=== PATIENT | male | born 1980 | race Caucasian/White ===

== ENCOUNTER 2018-06-04 12:02 | Emergency (ER) | payer SELFPAY ==
[2018-06-04 12:03] VITALS: BP 134/78; PULSE 58; RESP 17; TEMP 37; O2SAT 100; BMI 21.1
--- NOTE | 2018-06-04 12:43 | ED.VISSUMM ---
- ER Visit Summary Date of Service: 06/04/18 Chief Complaint: Dental pain History of Present Illness: The patient is a 37 M with no primary care physician. Reports that he has pain in his left mandibular first molar that began 2 days ago. It is aching, throbbing pain 8 out of 10 hours and 6 of 10 currently. Is worsened by eating and relieved by ibuprofen minimally. His review of systems is negative. Physical Examination: Vitals: Stable. Afebrile. Mouth: No trismus. No edema of the floor of the mouth. Pain with percussion of left mandibular first molar. Widespread dental decay. No focal abscess. Moderate swelling of the left mandibular area. This does not extend onto the neck of the submandibular area. General: A&O x 3. NAD. Cardiovascular exam: Regular rate and rhythm, no murmur, rub or gallop. Respiratory exam: Clear to auscultation bilaterally. No wheezes or stridor. Abdominal exam: Soft, nontender, nondistended, normal bowel sounds. No peritoneal signs. Extremity: No clubbing, cyanosis, or edema. Emergency Department Course and Treatment: Patient did not want anything for pain. He was given penicillin p.o. He is resting comfortably. Treatment Plan: Patient will be discharged on penicillin. Instructed to follow-up the dentist as soon as possible. Return to the emergency department for any worsening symptoms. Disposition: This note was generated with jaja.tv software. It may contain incorrect words, spelling, and punctuation that were not noted in review of the chart prior to signing. Impression: 1. Dental abscess. This note was generated with [employer]book[employer] Textbook Time dictation software. It may contain incorrect words, spelling, and punctuation that were not noted in review of the chart prior to signing ED Disposition - Plan for ED Patient: Disposition: Home or Assisted Living Instructions: Dental Abscess Prescriptions: Penicillin V Potassium 500 mg PO 4X/DAY #40 tablet Referrals: Dentist,Your [STAFF PHYSICIAN] - As soon as possible
[2018-06-04] MEDS: Penicillin Vk 250 MG Tablet 500 MG PO (12:49)
== END 2018-06-04 12:53 | disposition home or self-care (01) ==
LOC: ED 12:50
PROVIDERS: Emergency Provider Emergency Medicine
DX: L02.91 Cutaneous abscess, unspecified (principal); Z72.0 Tobacco use
CPT/HCPCS: 99283

== ENCOUNTER 2018-06-24 17:37 | Emergency (ER) | payer SELFPAY ==
[2018-06-24 17:38] VITALS: BP 133/78; PULSE 74; RESP 17; TEMP 36.7; O2SAT 99; BMI 20.9
--- NOTE | 2018-06-24 19:43 | ED.RN ---
PATIENT LWBS AT 1939
== END 2018-06-24 19:39 | disposition left against medical advice (07) ==
LOC: ED 19:49
PROVIDERS: Emergency Provider Emergency Medicine
DX: R69 Illness, unspecified (principal); Z53.21 Procedure and treatment not carried out due to patient leaving prior to being seen by health care provider

== ENCOUNTER 2020-07-06 10:59 | Emergency (ER) | payer OTHER, SELFPAY ==
[2020-07-06 11:00] VITALS: BP 130/79; PULSE 72; RESP 16; TEMP 35.8; O2SAT 100; BMI 21.6
--- NOTE | 2020-07-06 12:01 | ED.VIS.DENTA ---
HPI History of Present Illness Chief Complaint: Dental Informant: patient Narrative Narrative: Patient is 39-year-old male presenting with left-sided dental pain and jaw swelling. He states that been present for the past 3 days. Is been taking ibuprofen with no relief. Last dose was last night. He saw a dentist about 6 months ago when he had a similar episode. At that time he was on antibiotics, he thinks it was penicillin. He never followed up with a dentist and did not have his dental issues addressed. Patient has associated fever. Eyes any difficulty swallowing. He denies any change in speech. Does not report any new trauma. No other complaints at this time. PFSH PFSH no medical history Home Medications ibuprofen 600 mg PO Q6H PRN PRN #20 tab 07/06/20 [Rx Last Taken Unknown] penicillin V potassium 500 mg PO 4X/DAY #40 tab 07/06/20 [Rx Last Taken Unknown] Allergy/AdvReac Type Severity Reaction Status Date / Time No Known Allergies Allergy Verified 07/06/20 11:03 Social History Smoking Status: Heavy Smoker (>10/day) ROS ROS ED Constitutional Constitutional ED: Denies chills or fever(s) Eyes Eyes: Denies blurry vision or change in vision ENT ENT ED: Reports ear pain left and other Details: Left lower dental pain ; Denies rhinorrhea or sore throat Cardiovascular Cardiovascular: Denies chest pain Respiratory/Chest Respiratory/Chest: Denies dyspnea Gastrointestinal Gastrointestinal: Denies abdominal pain, nausea or vomiting Musculoskeletal Musculoskeletal: Denies arthralgias or myalgias Integumentary Denies rash Neurologic Neurologic: Denies headache(s) EXAM Physical Exam Const Vital Signs: 07/06/20 11:00 Temperature 96.4 F L Temperature Source Temporal Pulse Rate 72 Respiratory Rate 16 Blood Pressure 130/79 H Blood Pressure Mean 96 Pulse Ox 100 Oxygen Delivery Method Room Air Positive well nourished and well developed General Appearance ED: well developed HEENT Reports TM's clear HEENT Narrative: Widespread dental decay and multiple missing teeth. No acute appearing broken tooth. Diffuse tenderness of the left lower molars. No apical abscess appreciated. Sublingual mucosa is soft. Negative for trauma Face and Sinus: sinuses nontender Tympanic Membrane ED: Yes TM's clear Mouth ED: Yes tongue normal and No mouth trauma Mouth: tongue normal and No mouth trauma Throat: posterior oropharynx normal Eyes PERRL and EOMs intact bilaterally Neck no lymphadenopathy and supple General: normal visual inspection Chest Wall inspection of chest normal Resp normal respiratory effort Cardio regular rate and regular rhythm Extremity normal to inspection Neuro oriented x3 and CN's II-XII intact bilaterally Sensorium / Orientation: alert Psych mental status grossly normal Skin no rashes or lesions noted MDM MDM MDM Narrative Medical decision making narrative: Patient will have her dental pain. Initially he is requesting a dental block. There was a delay in getting the Marcaine and by the time I came into the room to do the block he states he is actually feeling better and does not want it anymore. Patient be discharged home with prescription for Pen-Vee K. He is instructed alternate Tylenol and ibuprofen as well for pain. He is given dental referral clinic sheets. Patient does not have any airway compromise. I am not concerned for Ludwigs angina or any more serious process at this time. I think he stable for outpatient discharge. Patient counseled on signs and symptoms require return to the emergency room. He verbalizes agreement understand this plan. He is discharged home in stable condition. Treatment and Re-Evaluation Comments:: Motrin, Tylenol, Pen-V K?improvement of symptoms and pain Discharge Plan Triage Chief Complaint: Dental ED Provider: Mana Medina Dx/Rx/DC Orders Clinical Impression: Dentalgia Instructions: ED Dental Pain Prescriptions: New ibuprofen 600 mg tablet 600 mg PO Q6H PRN PRN (Reason: fever or pain) Qty: 20 RF: 0 penicillin V potassium 500 mg tablet 500 mg PO 4X/DAY Qty: 40 RF: 0 Primary Care Provider: Care Physician,No Primary Referrals: Becky Woods [NON-STAFF] - Care Physician,No Primary [Primary Care Provider] - Activity Restrictions/Additional Instructions: Alternate Tylenol and ibuprofen for pain. Take the entire course of antibiotics. Please make sure you follow-up with a dentist in the next 2 weeks. Disposition Disposition: Home, self care
[2020-07-06] MEDS: Penicillin Vk 250 MG Tablet 500 MG PO (12:15)
[2020-07-06] MEDS: Ibuprofen 600 MG Tablet PO (12:15)
[2020-07-06] MEDS: Acetaminophen 500 MG Tablet 1000 MG PO (12:15)
== END 2020-07-06 13:45 | disposition home or self-care (01) ==
PROVIDERS: Emergency Provider Emergency Medicine
DX: K02.9 Dental caries, unspecified (principal); F17.200 Nicotine dependence, unspecified, uncomplicated
CPT/HCPCS: 99283

== ENCOUNTER 2020-08-08 10:11 | Emergency (ER) | payer OTHER, SELFPAY ==
[2020-08-08 10:13] VITALS: BP 134/85; PULSE 85; RESP 16; TEMP 36.9; O2SAT 99; BMI 19.9
--- NOTE | 2020-08-08 10:37 | RAD_ITS ---
STUDY: X-RAY CHEST REASON FOR EXAM: Male, 40 years old. 3-4 day history of cough. TECHNIQUE: Single AP portable view of the chest. COMPARISON: None. FINDINGS: Hyperinflation. The lungs are clear. There is no demonstrated pleural abnormality. Normal size heart. Normal mediastinum and guillermo. Normal visualized pulmonary arteries. Normal visualized aortic arch and descending thoracic aorta. Normal visualized thoracic spine. Normal visualized ribs, clavicles, and shoulders. There is no demonstrated abnormality of the visualized soft tissue structures of the upper abdomen. RAD/Chest 1 View (Portable) IMPRESSION: Hyperinflation. The lungs are clear. Electronically Signed: Los Wray MD at 11:38 EDT , Service support ,
[2020-08-08 10:49] VITALS: O2SAT 100
--- NOTE | 2020-08-08 12:12 | EX.ED.VIS.UR ---
HPI HPI - URI History of Present Illness Chief Complaint: Cough Informant: patient Onset/Context/Timing Onset: Days (3) Context: Gradual Onset Timing: Continuous Quality: Pressure Location: Chest, throat Worsened by: - (Nothing) Relieved by: - (Nothing) Associated Symptoms Associated Symptoms: Positive for Nasal Congestion, Shortness of Breath, Chest Pain and Productive Cough (Brown and yellow sputum); Negative for Headache, Sinus Pressure, Myalgias, Nausea, Vomiting and Diarrhea Narrative Narrative: This patient presents with cough and congestion for the past 3 days. Patient states he feels like congestion or pressure in his chest and throat. Patient states it is gradually getting worse. Patient admits to some nasal congestion as well. Patient states she is coughing up some brown-yellow sputum. Patient admits to some shortness of breath. Patient denies any nausea or vomiting. Patient admits to subjective chills but denies any fevers. ROS ROS ED Constitutional Constitutional ED: Reports chills and subjective; Denies fever(s) Eyes Eyes: Denies blurry vision or change in vision ENT ENT ED: Reports rhinorrhea; Denies sore throat Cardiovascular Cardiovascular: Reports chest pain; Denies palpitations Respiratory/Chest Respiratory/Chest: Reports cough and dyspnea Gastrointestinal Gastrointestinal: Denies nausea or vomiting Genitourinary Genitourinary ED: Denies dysuria or hematuria Musculoskeletal Musculoskeletal: Reports back pain; Denies neck pain Integumentary Denies abscess or rash Neurologic Neurologic: Denies headache(s) or weakness Allergic/Immunologic Allergic/Immunologic ED: Denies mouth swelling or urticaria PFSH PFSH no medical history Home Medications NK 08/08/20 [History Last Taken Unknown] Allergy/AdvReac Type Severity Reaction Status Date / Time No Known Allergies Allergy Verified 08/08/20 10:11 no surgical history Social History Smoking Status: Heavy Smoker (>10/day) EXAM Physical Exam Const Vital Signs: 08/08/20 10:13 08/08/20 10:49 Temperature 98.4 F Temperature Source Temporal Pulse Rate 85 Respiratory Rate 16 Respiratory Effort Short of Breath Respiratory Depth Normal Respiratory Pattern Normal Blood Pressure 134/85 H Blood Pressure Mean 101 Pulse Ox 99 Oxygen Delivery Method Room Air Room Air Positive well nourished and well developed General Appearance ED: well developed HEENT normocephalic and atraumatic Eyes PERRL and EOMs intact bilaterally Neck supple and no JVD Chest Wall palpation of chest normal Resp normal respiratory effort and clear to auscultation bilaterally Effort and Inspection: Negative for respiratory distress Cardio regular rate, regular rhythm and no murmurs Rate: regular rate Rhythm: regular rhythm GI normal to inspection, nondistended, normoactive bowel sounds, soft to palpation, non-tender and non-distended Auscultation: normoactive bowel sounds Palpation: soft Extremity normal to inspection General Extremety ED: Negative for edema or tenderness General Extremity: Negative for edema Neuro oriented x3, CN's II-XII intact bilaterally and no sensory deficits noted Sensorium / Orientation: awake and alert Motor Exam: strength 5/5 throughout Psych mental status grossly normal MDM MDM MDM Narrative Medical decision making narrative: COVID-19 rapid antigen was obtained and was negative. Portable 1 view chest x-ray was obtained. On my interpretation, lung henriquez are hyperinflated but clear. There is normal cardiac silhouette. Bony thorax is normal. There is no acute process noted. Radiologist also interpreted the x-ray and agrees. Patient is feeling better on reevaluation wants to go home. Patient was advised of his findings. Patient was instructed to follow-up with his primary care physician in 5 to 7 days. Patient understood and was agreeable with the plan. All questions were answered. Radiography Diagnostic Testing: Radiology Impression Chest X-Ray 08/08/20 10:37 IMPRESSION: Hyperinflation. The lungs are clear. Electronically Signed: Los Wray MD at 11:38 EDT , Service support , Discharge Plan Triage Chief Complaint: Cough ED Provider: Justen Prabhakar Dx/Rx/DC Orders Clinical Impression: Viral URI Instructions: ED URI, Viral, No Abx (Adult) Prescriptions: No Action NK RF: 0 Primary Care Provider: Care Physician,No Primary Referrals: Care Physician,No Primary [Primary Care Provider] - 1-2 Weeks Disposition Disposition: Home, self care
== END 2020-08-08 12:22 | disposition home or self-care (01) ==
PROVIDERS: Emergency Provider Emergency Medicine
DX: J06.9 Acute upper respiratory infection, unspecified (principal); F17.200 Nicotine dependence, unspecified, uncomplicated
CPT/HCPCS: 71045; 87426; 99282

== ENCOUNTER 2023-05-03 11:09 | Emergency (ER) | payer BC, SELFPAY ==
[2023-05-03 11:09] VITALS: BP 138/84; PULSE 68; RESP 14; TEMP 36.3; O2SAT 100; BMI 20.7
--- NOTE | 2023-05-03 11:17 | EDS_ITS ---
HPI <HERNESTO Matthews - Last Filed: 05/03/23 11:25> History of Present Illness Chief Complaint: Dental Narrative Narrative: 42-year-old male has had 3 days of left lower dental pain and swelling. He states he had an abscess in this area before. He cannot tell exactly which molars coming from. No fever, chills, or difficulty swallowing or breathing. He states he just got insurance and plans to follow-up with a dentist. PFSH <HERNESTO Matthews - Last Filed: 05/03/23 11:25> PFS Medical History no medical history Home Medications penicillin V potassium 500 mg tablet 500 mg PO 4X/DAY #40 tabs 05/03/23 [Rx Last Taken Unknown] Allergy/AdvReac Type Severity Reaction Status Date / Time No Known Allergies Allergy Verified 05/03/23 11:10 Social History Smoking Status: Heavy Smoker (>10/day) ROS <HERNESTO Matthews - Last Filed: 05/03/23 11:25> ROS ED ROS Narrative Constitutional: Negative for fever, chills, malaise. GI: Negative for nausea, vomiting. Neuro: Negative for headache. EXAM <HERNESTO Matthews - Last Filed: 05/03/23 11:25> Physical Exam Narrative Exam Narrative: CONST: Patient sitting in no acute distress. EYES: Normal inspection. ENT: Widespread dental decay and tenderness of left lower molars. Mild swelling of the left mandible. No periapical abscess, sublingual space is soft. No trismus, drooling or stridor. Normal posterior oropharynx. NECK: Normal inspection. Trachea midline. RESP: No respiratory distress, CTAB. CVS: Regular rate and rhythm, no murmur, no gallop. SKIN: Color normal, no rash, warm, dry, intact. NEURO: Oriented x4. PSYCH: Normal affect. Const Vital Signs: 05/03/23 11:09 Temperature 97.3 F L Temperature Source Temporal Pulse Rate 68 Respiratory Rate 14 Blood Pressure 138/84 H Blood Pressure Mean 102 Pulse Ox 100 Oxygen Delivery Method Room Air <Dr. Messi Machado DO - Last Filed: 05/03/23 20:25> Physical Exam Narrative Exam Narrative: CONST: Patient sitting in no acute distress. EYES: Normal inspection. ENT: Widespread dental decay and tenderness of left lower molars. Mild swelling of the left mandible. No periapical abscess, sublingual space is soft. No trismus, drooling or stridor. Normal posterior oropharynx. No trismus, no drooling, no stridor, posterior pharynx clear, uvula midline, no neck tenderness to palpation, full neck range of motion NECK: Normal inspection. Trachea midline. RESP: No respiratory distress, CTAB. CVS: Regular rate and rhythm, no murmur, no gallop. SKIN: Color normal, no rash, warm, dry, intact. NEURO: Oriented x4. PSYCH: Normal affect. Const Vital Signs: 05/03/23 11:09 Temperature 97.3 F L Temperature Source Temporal Pulse Rate 68 Respiratory Rate 14 Blood Pressure 138/84 H Blood Pressure Mean 102 Pulse Ox 100 Oxygen Delivery Method Room Air MDM <HERNESTO Matthews - Last Filed: 05/03/23 11:25> [facility] Narrative Medical decision making narrative: Patient has dental decay and 3 days of pain and mild swelling. Tender over left lower molars. No evidence of drainable periapical abscess or Xander angina. He was started on penicillin VK and advised to alternate Tylenol/Motrin and follow- up with a dentist. He was discharged in stable condition. <Dr. Messi Machado DO - Last Filed: 05/03/23 20:25> [facility] Narrative Medical decision making narrative: Patient has dental decay and 3 days of pain and mild swelling. Tender over left lower molars. No evidence of drainable periapical abscess or Xander angina. He was started on penicillin VK and advised to alternate Tylenol/Motrin and follow- up with a dentist. He was discharged in stable condition. ED attending note: I evaluated the patient in conjunction with the STEFANIE. I agree with his/her statements and above findings. I have personally performed a face to face assessment of the patient and have reviewed the STEFANIE Note. I performed a substantive portion of the visit including all aspects of the following. I personally saw the patient performed chart review, physical exam, reviewed labs, imaging (if obtained), and formulated a treatment and management plan. This note was generated with [email or web address] software. It may contain incorrect words, spelling, and punctuation that were not noted in review of the chart prior to signing. Discharge Plan Triage Chief Complaint: Dental ED Midlevel Provider: Haley Ramirez ED Provider: Messi Machado Dx/Rx/DC Orders Clinical Impression: Dental abscess Instructions: Dental Abscess Prescriptions: New penicillin V potassium 500 mg tablet 500 mg PO 4X/DAY Qty: 40 0RF Primary Care Provider: Care Physician,No Primary Referrals: Care Physician,No Primary [Primary Care Provider] - Activity Restrictions/Additional Instructions: Alternate Tylenol and Motrin every 3 hours as needed for pain and follow-up with a dentist Disposition Disposition: Home, Self Care Discharge Date/Time: 05/03/23 11:58
[2023-05-03] MEDS: Penicillin Vk 250 MG Tablet 500 MG PO (11:30)
--- OUTSIDE RECORDS SUMMARY | 2023-05-03 11:44 | XMS RPT_ITS | CCD ---
Author Name Unknown Address [address] [facility] [address] [place] [id number] Organization [facility] Care Team Providers Care Material Inspector Name Role Phone Unavailable Primary Care Provider Unavailabl e Medications Current Medications Medication Drug Class(es) Dates Sig (Normalized) Sig (Original) amoxicillin 875 mg oral tablet (2 sources) Penicillin-class Antibacterial Start: 12-18-2022 End: 12-23-2022 take 1 tablet by mouth twice daily amoxicillin (AMOXIL) 875 mg tablet Indications: Dental infection Take 1 tablet by mouth two times a day for 5 days. 10 tablet 0 12/18/2022 12/23/2022 Active Problems Problem Classification Problem Date Documented Da te Episodic/Chronic Disorders of teeth and jaw (2 sources) Infection of tooth; Translations: [Periapical abscess without sinus] Episodic Results Test Name Value Interpretation Reference Range Facil ity Vital Signs Date Time Vital Sign Value Performing Clinician Faci lity 12-18-2022 19:08-0400 Body temperature 98.8 [degF] Davin Livingston MD Work Phone: [facility] 12-18-2022 19:08-0400 Body weight 52.53 kg Davin Livingston MD Work Phone: [facility] 12-18-2022 19:08-0400 Diastolic blood pressure 83 mm[Hg] Davin Livingston MD Work Phone: [facility] 12-18-2022 19:08-0400 Heart rate 91 /min Davin Livingston MD Work Phone: [facility] 12-18-2022 19:08-0400 Respiratory rate 18 /min Davin Livingston MD Work Phone: [facility] 12-18-2022 19:08-0400 SaO2% (BldA) [Mass fraction] 99 % Davin Livingston MD Work Phone: [facility] 12-18-2022 19:08-0400 Systolic blood pressure 129 mm[Hg] Davin Livingston MD Work Phone: [facility] 06-03-2022 18:26-0400 Body temperature 98.91 [degF] Pamela Athy PA-C Work Phone: [facility] 06-03-2022 18:26-0400 Body weight 55.52 kg Pamela Athy PA-C Work Phone: [facility] 06-03-2022 18:26-0400 Diastolic blood pressure 78 mm[Hg] Pamela Athy PA-C Work Phone: [facility] 06-03-2022 18:26-0400 Heart rate 73 /min Pamela Athy PA-C Work Phone: [facility] 06-03-2022 18:26-0400 Respiratory rate 16 /min Pamela Athy PA-C Work Phone: [facility] 06-03-2022 18:26-0400 SaO2% (BldA) [Mass fraction] 97 % Pamela Athy PA-C Work Phone: [facility] 06-03-2022 18:26-0400 Systolic blood pressure 122 mm[Hg] Pamela Athy PA-C Work Phone: [facility] Encounters Encounter Date Encounter Type Care Provider Facility Start: 02-27-2023 End: 02-27-2023 ambulatory Facility:[facility] Start: 12-18-2022 End: 12-18-2022 ambulatory Facility:[facility] Start: 12-18-2022 End: 12-18-2022 Patient encounter procedure Davin Livingston MD Work Phone: [facility] Plan of Treatment Date Care Activity Detail Author Start: 10-31-2022 Influenza vaccination [facility] Start: 03-02-2022 DEPRESSION ASSESSMENT DEPRESSION ASS ESSMENT [facility] Start: 2017 Lipid 1996 panel - S daja or Plasma Lipid Screening [facility] Start: 2017 LIPID SCREEN LIPID SCREEN [facility] Start: 2001 Urine microalbumin profile [facility] Start: 2000 HEPATITIS C SCREENING HEPATITIS C SC REENING [facility] Start: 2000 HIV SCREENING HIV SCREENING [facility] Start: 1988 PNEUMOCOCCAL (1 - PCV) PNEUMOCOCCAL (1 - PCV) [facility] Start: 1988 Pneumococcal vaccination Pneum ococcal Vaccine (1 - PCV) [facility] Start: 01-10-1983 COVID-19 VACCINE (#1) COVID-19 VACCI NE (#1) [facility] Start: 1982 HEPATITIS B (1 of 3 - 3-dose series) HEPATITIS B (1 of 3 - 3-dose series) [facility] Start: 1982 Hepatitis B Vaccine (1 of 3 - 3-dose series) Hepatitis B Vaccine (1 of 3 - 3-dose series) [facility] Immunizations Immunization Date Immunization Notes Care Provider Luisana bowen 01-15-2008 influenza virus vaccine, unspecified formulation Pamela Banks PA-C Work Phone: [facility] Work Phone: Payers Date Payer Category Payer Unknown PENDING 2022 Unknown [id number] 2022 Unknown [id number] 2022 Unknown [id number] Social History Date Type Detail Facility Start: 06-03-2022 Tobacco smoking stat us AKIS Smokes tobacco daily [facility] History of tobacco use Cigarette Smoker C [facility] Start: 06-03-2022 End: 12-18-2022 Cigarettes smoked current (pack per day) - Reported 1 [facility] Start: 06-03-2022 Tobacco use and exposure Smoke less tobacco non-user [facility] Start: 06-03-2022 End: 12-18-2022 Alcohol intake Current non-drinker of alcohol (finding) [facility] Start: 1980 Sex Assigned At Not on file C [facility] Start: 12-18-2022 Tobacco use panel [facility] Progress note 02-27-2023 Note Date & Type Note Facility 02-27-2023 Note HNO ID: [id number] Author: Alysha Abdi PA Service: ? Author Type: Physician Satellite Installation Technician Type: Progress Notes Filed: 02/27/2023 5:30 PM Note Text: This note was created using Nemediariter. Subjective Butch Dejesus is a 42 year old male. HPI 42-year-old male presents for left index finger swelling, redness. Patient states that started about 2 days ago. He has history of paronychia in the past. 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 Has not been on any antibiotics recently. No drainage from the area. No fevers. No pain with movement of the finger. No injury. PAST MEDICAL HISTORY Diagnosis Date NEGATIVE MEDICAL HISTORY No past surgical history on file. ALLERGIES Patient has no known allergies. MEDICATIONS amoxicillin-clavulanate potassium (AUGMENTIN) 875-125 mg per tablet Take 1 tablet by mouth two times a day for 7 days. No family history on file. Social History Tobacco Use Smoking status: Every Day Packs/day: 1.00 Years: 11.00 Additional pack years: 0.00 Total pack years: 11.00 Types: Cigarettes Smokeless tobacco: Never Substance Use Topics Alcohol use: No Drug use: No Review of Systems Constitutional: Negative for chills and fever. HENT: Negative for congestion and sore throat. Respiratory: Negative for cough and shortness of breath. Gastrointestinal: Negative for diarrhea and vomiting. Skin: Positive for color change. Objective BP 128/78 Pulse 87 Temp 36.9 ?C (98.5 ?F) Resp 18 Wt 56.7 kg (125 lb) SpO2 99% Physical Exam Vitals and nursing note reviewed. Constitutional: General: He is not in acute distress. Appearance: Normal appearance. He is not toxic-appearing. Musculoskeletal: Left hand: Swelling present. Hands: Comments: Swelling and erythema noted around the base of the left index finger nail. No tenderness over the flexor surface. No erythema or swelling over the flexor surface. Normal flexion extension of the digit. No drainage. Skin: General: Skin is warm and dry. Neurological: Mental Status: He is alert. Assessment and Plan ASSESSMENT/PLAN: 1. Paronychia of finger of left hand - ICD9: 681.02, ICD10: L03.012 - Attempted to lift the skin of the cuticle and IANDD with a needle, but no drainage was expressed. Antibiotic ointment and bandage applied. - Begin treatment with Augmentin x 7 days. 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 Pt acknowledged understanding of concepts and follow up plan. Specific signs and symptoms that would indicate the need for higher level of care were discussed in detail warranting prompt ER evaluation. HERNESTO [facility] Progress note 12-18-2022 Note Date & Type Note Facility 12-18-2022 Note HNO ID: [id number] Author: Davin Livingston MD Service: ? Author Type: Physician Type: Progress Notes Filed: 12/18/2022 7:22 PM Note Text: Patient presents with: Dental Problem: Left side bottom x 1 week HPI: Dental pain: Duration: 1 week Location: left lower molar Character: aching and throbbing Aggravating: biting, cold air or liquid Relieving: Pain relievers: midol Associated: cavity Pertinent negatives: Denies fever, drainage, new injury MEDICATIONS: No prescriptions on file. ALLERGIES: ALLERGIES No Known Allergies VITALS: BP 129/83 Pulse 91 Temp 37.1 ?C (98.8 ?F) Resp 18 Wt 52.5 kg (115 lb 12.8 oz) SpO2 99% PE: Gen: Mildly uncomfortable appearing Eyes: PERRL, EOMI, sclera lightly injected Ears: Canals clear. TMs without erythema, bulge, or effusion Sinuses: non-tender frontal, non-tender maxillary Mouth/throat: MMM, no pharyngeal erythema, left lower 1st molar has cavities and identified as painful tooth. Neck: Supple, no thyromegaly, nontender, no lymphadenopathy Heart: regular rate and rhythm, no murmurs Lungs: clear to auscultation ASSESSMENT/PLAN: 1. Dental infection - ICD9: 522.4, ICD10: K04.7 - AMOXICILLIN 875 MG TABLET As needed OTC analgesia. Recommended follow up with dentist for cavity repair. Davin Livingston MD [facility] History of Present illness Narrative 12-18-2022 Davin Livingston MD - 12/18/2022 7:10 PM EDT Note Date & Type Note Facility 12-18-2022 History of Presen t illness Narrative Patient presents with: Dental Problem: Left side bottom x 1 week HPI: Dental pain: Duration: 1 week Location: left lower molar Character: aching and throbbing Aggravating: biting, cold air or liquid Relieving: Pain relievers: midol Associated: cavity Pertinent negatives: Denies fever, drainage, new injury MEDICATIONS: No prescriptions on file. ALLERGIES: ALLERGIES No Known Allergies VITALS: BP 129/83 Pulse 91 Temp 37.1 C (98.8 F) Resp 18 Wt 52.5 kg (115 lb 12.8 oz) SpO2 99% PE: Gen: Mildly uncomfortable appearing Eyes: PERRL, EOMI, sclera lightly injected Ears: Canals clear. TMs without erythema, bulge, or effusion Sinuses: non-tender frontal, non-tender maxillary Mouth/throat: MMM, no pharyngeal erythema, left lower 1st molar has cavities and identified as painful tooth. Neck: Supple, no thyromegaly, nontender, no lymphadenopathy Heart: regular rate and rhythm, no murmurs Lungs: clear to auscultation ASSESSMENT/PLAN: 1. Dental infection - ICD9: 522.4, ICD10: K04.7 - AMOXICILLIN 875 MG TABLET As needed OTC analgesia. Recommended follow up with dentist for cavity repair. Davin Livingston MD documented in this encounter [facility] Progress note 06-03-2022 Note Date & Type Note Facility 06-03-2022 Note HNO ID: [id number] Author: Pamela Banks PA-C Service: ? Author Type: Physician Satellite Installation Technician Type: Progress Notes Filed: 06/03/2022 6:49 PM Note Text: This note was created using NoteWriter. Subjective Butch Dejesus is a 41 year old male. HPI Presents with the chief complaint of dental pain for 4 days. He has a broken tooth and believes it is infected. Started to swell and become painful 4 days ago. No fever. He had been told previously he needs to have 10 teeth pulled but had not followed up yet with his dentist. Review of Systems Constitutional: Negative. HENT: Positive for dental problem and facial swelling. Eyes: Negative. Respiratory: Negative. Cardiovascular: Negative. Gastrointestinal: Negative. Genitourinary: Negative. All other systems reviewed and are negative. PAST MEDICAL HISTORY Diagnosis Date NEGATIVE MEDICAL HISTORY Current Outpatient Medications Medication Sig Dispense Refill amoxicillin (AMOXIL) 875 mg tablet Take 1 tablet by mouth twice daily for 7 days. 14 tablet 0 No current facility-administered medications for this visit. No past surgical history on file. No family history on file. Social History Tobacco Use Smoking status: Every Day Packs/day: 1.00 Years: 11.00 Pack years: 11.00 Types: Cigarettes Smokeless tobacco: Never Substance Use Topics Alcohol use: No Drug use: No Objective BP 122/78 Pulse 73 Temp 37.2 ?C (98.9 ?F) (Tympanic) Resp 16 Wt 55.5 kg (122 lb 6.4 oz) SpO2 97% Physical Exam Vitals reviewed. Constitutional: Appearance: Normal appearance. HENT: Head: Normocephalic. Mouth/Throat: Comments: Exam of the mouth reveals multiple missing teeth and severe decay. Teeth #1314 and 15 are decayed to the gumline with some mild overlying facial swelling noted. No trismus. No sign of Ludwigs angina Cardiovascular: Rate and Rhythm: Normal rate and regular rhythm. Heart sounds: Normal heart sounds. Pulmonary: Effort: Pulmonary effort is normal. Breath sounds: Normal breath sounds. Musculoskeletal: Cervical back: Neck supple. Skin: General: Skin is warm and dry. Neurological: Mental Status: He is alert. Assessment and Plan ASSESSMENT/PLAN: 1. Dental infection - ICD9: 522.4, ICD10: K04.7 We will treat with amoxicillin. Discussed ibuprofen or Tylenol for pain. Follow-up with dentist. Pamela Banks PA-C [facility] History of Present illness Narrative 06-03-2022 Pamela Banks PA-C - 06/03/2022 6:46 PM EDT Note Date & Type Note Facility 06-03-2022 History of Presen t illness Narrative This note was created using GOSOter. Subjective Butch Dejesus is a 41 year old male. HPI Presents with the chief complaint of dental pain for 4 days. He has a broken tooth and believes it is infected. Started to swell and become painful 4 days ago. No fever. He had been told previously he needs to have 10 teeth pulled but had not followed up yet with his dentist. Review of Systems Constitutional: Negative. HENT: Positive for dental problem and facial swelling. Eyes: Negative. Respiratory: Negative. Cardiovascular: Negative. Gastrointestinal: Negative. Genitourinary: Negative. All other systems reviewed and are negative. PAST MEDICAL HISTORY Diagnosis Date NEGATIVE MEDICAL HISTORY Current Outpatient Medications Medication Sig Dispense Refill amoxicillin (AMOXIL) 875 mg tablet Take 1 tablet by mouth twice daily for 7 days. 14 tablet 0 No current facility-administered medications for this visit. No past surgical history on file. No family history on file. Social History Tobacco Use Smoking status: Every Day Packs/day: 1.00 Years: 11.00 Pack years: 11.00 Types: Cigarettes Smokeless tobacco: Never Substance Use Topics Alcohol use: No Drug use: No Objective BP 122/78 Pulse 73 Temp 37.2 C (98.9 F) (Tympanic) Resp 16 Wt 55.5 kg (122 lb 6.4 oz) SpO2 97% Physical Exam Vitals reviewed. Constitutional: Appearance: Normal appearance. HENT: Head: Normocephalic. Mouth/Throat: Comments: Exam of the mouth reveals multiple missing teeth and severe decay. Teeth #1314 and 15 are decayed to the gumline with some mild overlying facial swelling noted. No trismus. No sign of Ludwigs angina Cardiovascular: Rate and Rhythm: Normal rate and regular rhythm. Heart sounds: Normal heart sounds. Pulmonary: Effort: Pulmonary effort is normal. Breath sounds: Normal breath sounds. Musculoskeletal: Cervical back: Neck supple. Skin: General: Skin is warm and dry. Neurological: Mental Status: He is alert. Assessment and Plan ASSESSMENT/PLAN: 1. Dental infection - ICD9: 522.4, ICD10: K04.7 We will treat with amoxicillin. Discussed ibuprofen or Tylenol for pain. Follow-up with dentist. Pamela Banks PA-C documented in this encounter [facility] Evaluation note Note Date & Type Note Facility documented in this encounter [facility] Evaluation note Note Date & Type Note Facility documented in this encounter [facility] Summary Purpose Family History No Family History Records Found Advance Directives No Advanced Directives Records Found Additional Source Comments Source Comments (unrecognize d section and content) In the event this informatio n is protected by the Federal Confidentiality of Alcohol and Drug Abuse Patient Records regulations: The Federal rules restrict any use of the information to criminally investigate or prosecute any alcohol or drug abuse patient[facility] event this information is protected by the Federal Confidentiality of Alcohol and Drug Abuse Patient Records regulations: The Federal rules restrict any use of the information to criminally investigate or prosecute any alcohol or drug abuse patient.[facility] Reason for Visit (unrecogniz ed section and content) Reason Comments Dental Problem Left side bottom x 1 week (unrecognized sect ion and content) No Status Records Found INFORMATION SOURCE (unrecogn ized section and content) FOR RECORDS PERTAINING TO PATIENTS WHO ARE OR HAVE BEEN ENROLLED IN A CHEMICAL DEPENDENCY/SUBSTANCEABUSE PROGRAM, SOME INFORMATION MAY BE OMITTED. This clinical summary was aggregated from multiple sources. Caution should be exercised in using it in the provision of clinical care. This summary normalizes information from multiple sources, and as a consequence, information in this document may materially change the coding, format and clinical context of patient data. In addition, data may be omitted in some cases. CLINICAL DECISIONS SHOULD BE BASED ON THE PRIMARY CLINICAL RECORDS. [facility]. provides no warranty or guarantee of the accuracy or completeness of information in this document.
== END 2023-05-03 11:58 | disposition home or self-care (01) ==
LOC: ED 11:42
PROVIDERS: Emergency Provider Emergency Medicine; Visit Provider Emergency Medicine
DX: K04.7 Periapical abscess without sinus (principal); F17.200 Nicotine dependence, unspecified, uncomplicated
CPT/HCPCS: 99282

== ENCOUNTER 2023-06-22 06:46 | Emergency (ER) | payer BC, SELFPAY ==
[2023-06-22 06:48] VITALS: BP 138/88; PULSE 97; RESP 18; TEMP 36.1; O2SAT 100; BMI 20.7
--- NOTE | 2023-06-22 07:06 | RAD_ITS ---
INDICATION: injury EXAMINATION/TECHNIQUE: X-RAY - LEFT XR Foot Min 3 Views COMPARISON: None. FINDINGS: SOFT TISSUES: Unremarkable. BONES/JOINTS: No fracture or dislocation. No significant degenerative changes. No erosive changes. RAD/Foot min 3 Views IMPRESSION: No fracture or dislocation. Electronically Signed: Jose Lopez DO at 7:33 EDT ,
--- NOTE | 2023-06-22 07:06 | RAD_ITS ---
INDICATION: injury EXAMINATION/TECHNIQUE: X-RAY - LEFT XR Ankle Min 3 Views COMPARISON: None. FINDINGS: SOFT TISSUES: Unremarkable. BONES/JOINTS: No fracture or dislocation. No significant degenerative changes. No erosive changes. RAD/Ankle min 3 Views IMPRESSION: No fracture or dislocation. Electronically Signed: Jose Lopez DO at 7:31 EDT ,
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
[2023-06-22] MEDS: Acetaminophen 500 MG Tablet 1000 MG PO (07:15)
[2023-06-22 07:54] VITALS: BP 120/77; PULSE 64; RESP 14; TEMP 36.4; O2SAT 99
== END 2023-06-22 07:55 | disposition home or self-care (01) ==
PROVIDERS: Emergency Provider Emergency Medicine; Visit Provider Emergency Medicine
DX: S90.02XA Contusion of left ankle, initial encounter (principal); S90.512A Abrasion, left ankle, initial encounter; V48.2XXA Person on outside of car injured in noncollision transport accident in nontraffic accident, initial encounter; Y93.89 Activity, other specified; F17.200 Nicotine dependence, unspecified, uncomplicated
CPT/HCPCS: 73610; 73630; 99282

== ENCOUNTER 2023-07-12 16:07 | Emergency (ER) | payer BC, SELFPAY ==
[2023-07-12 16:08] VITALS: PULSE 112; RESP 18; TEMP 36.7; O2SAT 97; BMI 20.2
--- NOTE | 2023-07-12 16:15 | ED.RN ---
Pt states he'll come back later when it's less busy.
== END 2023-07-12 16:16 | disposition left against medical advice (07) ==
LOC: ED 16:19
DX: K08.89 Other specified disorders of teeth and supporting structures (principal)

== ENCOUNTER 2024-01-08 11:08 | Inpatient (IN) | payer BC, SELFPAY ==
[2024-01-08 11:08] VITALS: BP 158/89; BP 161/92; PULSE 115; PULSE 117; RESP 16; RESP 18; TEMP 36.8; O2SAT 98; BMI 18.4
--- NOTE | 2024-01-08 11:14 | EDS_ITS ---
HPI History of Present Illness Chief Complaint: Substance Abuse [facility] Medical History (Updated 01/08/24 @ 11:43 by Cecelia Dash) Substance abuse Home Medications ?Medication ?Instructions ?Recorded ?Last Taken ?Type NK 06/22/23 Unknown History Allergy/AdvReac Type Severity Reaction Status Date / Time No Known Allergies Allergy Verified 01/08/24 11:09 Social History Smoking Status: Heavy Smoker (>10/day) EXAM Physical Exam Const Vital Signs: 01/08/24 11:08 01/08/24 11:08 Temperature 98.3 F Temperature Source Temporal Pulse Rate 115 H 117 H Respiratory Rate 18 16 Blood Pressure 158/89 H 161/92 H Blood Pressure Mean 112 115 Pulse Ox 98 98 Oxygen Delivery Method Room Air Room Air MDM MDM MDM Narrative Medical decision making narrative: HISTORY OF PRESENT ILLNESS: 43-year-old male here with detox from fentanyl. Last use at 6 AM. Notes he snorts fentanyl. Denies smoking or IV drug use. Denies any other drug use including alcohol. Denies any suicidal homicidal ideations. Denies any physical complaints. REVIEW OF SYSTEMS: Pertinent positives: Fentanyl detox Pertinent negatives: Chest pain, back pain PHYSICAL EXAM: Nursing triage notes reviewed, Vital signs reviewed Constitutional: please see mdm HENT: MMM Eyes: Pupils equal round and reactive to light, Extraocular muscles intact Neck: No stridor, no JVD, full neck ROM Lungs: Clear to auscultation, No wheezing or rales. No increased work of breathing, no conversational dyspnea, no accessory muscle use, no nasal flaring. No respiratory distress noted Heart: Regular rate and rhythm, No murmurs, No rubs and No gallops, 2+ distal pulses (radial, femoral, posterior tibial) in all extremities Abdomen: Soft, there is no tenderness, rigidity, rebound or guarding, no obvious peritoneal signs, no palpable pulsatile abdominal masses, no auscultated abdominal bruit : No CVAT Extremities: No edema Neuro: No focal neurological deficits, cranial nerves II through XII intact, 5/5 strength in all extremities. Intact sensation to light touch in all extremities, 2+ reflexes bilateral patella tendons. Normal gait. No ataxia. Intact sensation L1-S1 dermatomal distributions. Intact 5/5 strength in hip flexion (T12-L3). Knee extension (L2-L4). Ankle dorsiflexion (L4-L5). Ankle plantar flexion (S1). Great toe extension (L5). 2+ patellar and Achilles DTRs. Skin: No rash or lesions noted MEDICAL DECISION MAKING: Chief Complaint: Fentanyl detox External records reviewed: no recent psych/detox admits noted Factors affecting care: none Social determinants of health: none History obtained from others: none Consults: Internal medicine (Dr. Jackson) MDM Narrative: Patient was hypertensive, tachycardic afebrile and [id number]. No stigmata of endocarditis or space-occupying lesion of the spine including epidural abscess Medical clearance obtained to assess the patient department for detox. EKG with sinus tachycardia rate of 103, normal axis, normal intervals, no ST or T wave changes to suggest ischemia. No evidence of WPW, Brugada, ARVD. Serum alcohol negative CBC leukocytosis, no anemia, thrombocytopenia BMP without evidence of significant electrolyte abnormalities, no anion gap, no acute kidney injury. Urine tox screen positive for opiates and THC Discussed with hospitalist accepted the patient's case for detoxification. The patient and/or family, caregivers express understanding. The patient and/or family, caregivers agrees with the plan. Shared decision making: I will have a discussion with the patient and or visitors regarding risk/monique efits of further testing or admission. They will be made aware of of the risk/benefits inherent in this decision they will be given the opportunity to voice understanding. Total critical care time today provided was at least 0 minutes. This excludes separately billable procedures. Critical care time (if documented) is secondary to the patient having high probability of clinically significant/life threatening deterioration in the patient's condition which required my urgent intervention. Impression: 1. Fentanyl abuse 2. Encounter for fentanyl detoxification Dispo: Admit This note was generated with TrunqShow dictation software. It may contain incorrect words, spelling, and punctuation that were not noted in review of the chart prior to signing. Lab Data Labs: Laboratory Results - last 24 hr 01/08/24 01/08/24 11:30 11:40 WBC 14.3 H RBC 4.61 Hgb 13.2 Hct 40.3 MCV 87.4 MCH 28.6 MCHC 32.8 RDW Std Deviation 40.4 RDW Coeff of Emily 12.7 Plt Count 403 MPV 8.5 Immature Gran % (Auto) 0.400 Neut % (Auto) 64.0 Lymph % (Auto) 23.5 York % (Auto) 8.1 Eos % (Auto) 3.1 Baso % (Auto) 0.9 Absolute Neuts (auto) 9.2 H Absolute Lymphs (auto) 3.37 Nucleated RBC % 0 Sodium 140 Potassium 3.5 Chloride 104 Carbon Dioxide 30.0 Anion Gap 6 BUN 34 H Creatinine 1.07 Estim Creat Clear Calc 64.64 Est GFR (MDRD) Af Amer 98 Est GFR (MDRD) Non-Af 81 BUN/Creatinine Ratio 31.8 H Glucose 106 Calcium 9.6 Urine Opiates Screen POSITIVE H Urine Methadone Screen NEGATIVE Ur Barbiturates Screen NEGATIVE Ur Phencyclidine Scrn NEGATIVE Ur Amphetamines Screen NEGATIVE MDMA (Ecstasy) Screen NEGATIVE U Benzodiazepines Scrn NEGATIVE Urine Cocaine Screen NEGATIVE U Cannabinoids Screen POSITIVE H Ur Drug Screen Comment Ethyl Alcohol 5.0 Discharge Plan Triage Chief Complaint: Substance Abuse ED Provider: Messi Machado Dx/Rx/DC Orders Prescriptions: No Action NK Primary Care Provider: Care Physician,No Primary Referrals: Care Physician,No Primary [Primary Care Provider] - Print Language: Turkish
--- NOTE | 2024-01-08 11:21 | EKG12_ITS ---
Test Reason : Blood Pressure : */* mmHG Vent. Rate : 103 BPM Atrial Rate : 103 BPM P-R Int : 114 ms QRS Dur : 90 ms QT Int : 346 ms P-R-T Axes : 69 76 56 degrees QTcB Int : 453 ms Sinus tachycardia Otherwise normal ECG Confirmed by SELENA SARAH, BOAZ ([id number]), film and video editor KARINA GALEANA ([id number]) on 01/11/2024 10:29:25 AM Referred By: Confirmed By: BOAZ WALTERS MD
[2024-01-08 11:47] LABS: Absolute Lymphocyte Count 3.37 X10^3/uL (0.83-4.51); Absolute Neutrophil Count 9.2 X10^3/uL (2.0-7.7); Basophil# 0.13 X10^3/uL; Basophil% 0.9 % (0-1); Eosinophil# 0.44 X10^3/uL; Eosinophils% 3.1 % (0-5); Hematocrit 40.3 % (40-54); Hemoglobin 13.2 g/dL (13.0-16.5); Lymphocyte # 3.37 X10^3/ul (0.83-4.51); Lymphocyte % 23.5 % (19-41); Mean Corp Hgb Conc 32.8 g/dL (32-36); Mean Corpuscular Hgb 28.6 pg (27.0-32.0); Mean Corpuscular Volume 87.4 fL (80-94); Mean Platelet Vol. 8.5 fl (6.2-12.0); Monocyte# 1.16 X10^3/uL; Monocyte% 8.1 % (0-10); NRBC Flagged by Analyzer 0 % (0-5); Neutrophil # 9.16 X10^3/uL (2.7-7.7); Platelet Count 403 K/mm3 (150-450); RBC Distribution Width CV 12.7 % (11.6-14.6); RBC Distribution Width SD 40.4 fl (35.1-43.9); Red Blood Count 4.61 M/mm3 (4.6-6.2); White Blood Count 14.3 K/mm3 (4.4-11.0)
[2024-01-08 12:06] LABS: Amphetamine Urine NEGATIVE (<1000 ng/mL); Barbiturate Urine NEGATIVE (< 200 ng/mL); Benzodiazepine Urine NEGATIVE (< 200 ng/mL); Cocaine Urine NEGATIVE (< 300 ng/mL); Ecstacy Urine NEGATIVE (< 500 ng/mL); Methadone Urine NEGATIVE (< 300 ng/mL); Opiates Urine POSITIVE (< 300 ng/mL); PCP Urine NEGATIVE (< 25 ng/mL); THC Urine POSITIVE (< 50 ng/mL); Vista UDS pH Range 7
[2024-01-08 12:08] LABS: Anion Gap 6 (5-15); BUN 34 mg/dL (7-18); BUN/Creat Ratio 31.8 RATIO (10-20); Calcium,Total 9.6 mg/dL (8.5-10.1); Chloride 104 mmol/L (98-107); Creatinine, Serum 1.07 mg/dL (0.70-1.30); EST Glomerular Filtration Rate 81 mL/min (>60); Est Glom Filt Rate - Afr Amer 98 mL/min (>60); Estimated Creatinine Clearance 64.64 ml/min; Glucose 106 mg/dL (74-106); Potassium 3.5 mmol/L (3.5-5.1); Sodium Level 140 mmol/L (136-145)
--- NOTE | 2024-01-08 12:37 | PCM.HP.STD ---
HPI - General General Date of Admission: 01/08/24 Date of Service: 01/08/24 Chief Complaint: Benzodiazepine withdrawal symptoms HPI Narrative CAMILLA CRUZ, is a 43 M with history of chronic benzodiazepine use, fentanyl snorting about 1 g daily came to ED for help for benzodiazepine withdrawal symptoms. Patient having cramping in the abdomen, has pressured speech and feels anxious and restless. He states he is not having tremors or shaking, hallucinations, seizures, nightmares, illusion or delusion. Patient denies IV needle use. Denies history of chronic hep C, hep B and HIV. Patient has not drink alcohol for last 5 years. He also smokes cigarettes 1 pack/day and smokes marijuana Past medical history: Denies history of hypertension diabetes mellitus or other chronic heart disease or lung disease. Denies history of IV drug use or deep abscess, osteomyelitis or endocarditis [facility] Medical History Substance abuse Home Medications ?Medication ?Instructions ?Recorded ?Last Taken ?Type NK 06/22/23 Unknown History Allergy/AdvReac Type Severity Reaction Status Date / Time No Known Allergies Allergy Verified 01/08/24 11:09 Social History Smoking Status: Heavy Smoker (>10/day) ROS ROS Narrative Constitutional: Reports fatigue and weakness. No fever. HEENT: Reports systems reviewed and no addt'l complaints, except as documented Respiratory/Chest: No acute shortness of breath or respiratory distress or wheezing. CVS: No chest pain or shortness of breath. Denies CAD CHF other chronic heart disease Gastrointestinal: Denies coffee ground emesis, hematemesis or vomiting Genitourinary: Denies burning urination or new urinary tract symptoms Musculoskeletal: Denies acute joint pain or limited range of motion. No acute injury Neurologic: Denies seizure-like symptoms. Psychiatry: Substance use. Withdrawal symptoms skin: No ulcer. No rash Endocrinology: Reports systems reviewed and no addt'l complaints, except as documented Hematologic/Lymphatic: Reports systems reviewed and no addt'l complaints, except as documented Rest 14 ROS are negative except as mentioned in HPI Vital Signs Vital Signs Vital Signs: 01/08/24 11:08 01/08/24 11:08 Temperature 98.3 F Temperature Source Temporal Pulse Rate 115 H 117 H Respiratory Rate 18 16 Blood Pressure 158/89 H 161/92 H Blood Pressure Mean 112 115 Pulse Ox 98 98 Oxygen Delivery Method Room Air Room Air Weight Weight: 110 lb 14.28 oz Body Mass Index (BMI) 18.4 Physical Exam Narrative General: Alert, Oriented x3, Cooperative HEENT: Atraumatic, PERRLA, EOMI, Normocephalic Oral: No Gingival or Mucosal Lesions/ Ulcerations Neck: Supple, No JVD, Negative Carotid Bruits Chest wall/Lungs: Air entry diminished in bilateral lung bases. No crepitation/rhonchi Cardiovascular: Sinus tachycardia, normal S1, Normal S2, No M/G/R Abdomen: Bowel Sounds Present, Soft, Non Tender, Non-Distended : No dysuria. No renal angle tenderness. No suprapubic tenderness. Extremities: No edema, Capillary Refill Less than 3 Seconds Skin: No rashes, No breakdown Musculoskeletal: No Tenderness to Palpation of Joints or Extremities Neurological: Cranial nerves II-XII grossly intact, DTR 2+/4. No acute focal neurological deficit. Psych/Mental Status: Flat affect, pressured speech. No hallucination or delusion or seizure Results Lab / Micro Data 01/08/24 11:30 01/08/24 11:30 Labs: Laboratory Results - last 24 hr 01/08/24 11:30: WBC 14.3 H, RBC 4.61, Hgb 13.2, Hct 40.3, MCV 87.4, MCH 28.6, MCHC 32.8, RDW Std Deviation 40.4, RDW Coeff of Emily 12.7, Plt Count 403, MPV 8.5, Immature Gran % (Auto) 0.400, Neut % (Auto) 64.0, Lymph % (Auto) 23.5, Mcclain % (Auto) 8.1, Eos % (Auto) 3.1, Baso % (Auto) 0.9, Absolute Neuts (auto) 9.2 H, Absolute Lymphs (auto) 3.37, Nucleated RBC % 0, Sodium 140, Potassium 3.5, Chloride 104, Carbon Dioxide 30.0, Anion Gap 6, BUN 34 H, Creatinine 1.07, Estim Creat Clear Calc 64.64, Est GFR (MDRD) Af Amer 98, Est GFR (MDRD) Non-Af 81, BUN/Creatinine Ratio 31.8 H, Glucose 106, Calcium 9.6, Ethyl Alcohol 5.0 01/08/24 11:40: Urine Opiates Screen POSITIVE H, Urine Methadone Screen NEGATIVE, Ur Barbiturates Screen NEGATIVE, Ur Phencyclidine Scrn NEGATIVE, Ur Amphetamines Screen NEGATIVE, MDMA (Ecstasy) Screen NEGATIVE, U Benzodiazepines Scrn NEGATIVE, Urine Cocaine Screen NEGATIVE, U Cannabinoids Screen POSITIVE H, Ur Drug Screen Comment Assessment & Plan Assessment/Plan (1) Benzodiazepine withdrawal: PLAN: Plan This 43-year-old gentleman is being admitted for acute benzodiazepine withdrawal syndrome 1. Acute opioid withdrawal syndrome with history of chronic benzodiazepine use disorder, dependence and tolerance: [facility] The patient is started on buprenorphine along with other adjunctive medications as needed for medical stabilization as per order set of opioid withdrawal syndrome.Patient also on trazodone, hydroxyzine, gabapentin as needed ordered. Advised quitting opioid use. electrical tech/project manager consult. CINA monitoring. electrical tech/project manager 180 consulted. 2. Chronic cigarette smoking/nicotine use and marijuana use: Nicotine patches ordered. 3. DVT prophylaxis, low risk. Early ambulation encouraged. Advance directive/living will: Patient does not have a living will or advanced directive. His daughters are next to kin. Full code is verified Charges/Coding Visit Charges Inpatient E&M: 92949 Init Hosp L3
[2024-01-08 13:08] VITALS: PULSE 74; RESP 16; O2SAT 100
[2024-01-08 14:04] LABS: Prothrombin Time (Protime)PT. 13.2 SECONDS (11.7-14.9)
[2024-01-08 14:06] LABS: AST(SGOT) 12 U/L (15-37); Alanine Aminotransfer ALT/SGPT 21 U/L (16-61); Albumin, Serum 3.3 g/dL (3.2-5.0); Alkaline Phosphatase 99 U/L (45-117); Globulin 4.1 g/dL (2.2-4.2); Protein, Total 7.4 g/dL (6.4-8.2)
[2024-01-08 14:42] VITALS: BMI 17.6
[2024-01-08 14:52] VITALS: BP 117/84; PULSE 86; RESP 18; TEMP 36.6; O2SAT 100
[2024-01-08] MEDS: Ondansetron 8 MG Tablet PO ×2 (15:16→23:17)
[2024-01-08] MEDS: Dicyclomine 10 MG Capsule 20 MG PO ×2 (15:16→23:17)
[2024-01-08] MEDS: Buprenorphine HCl 2 MG TAB.SUBL SL ×2 (15:16→23:17)
[2024-01-08] MEDS: hydrOXYzine PAM 25 MG Capsule 50 MG PO ×2 (15:16→20:01)
[2024-01-08] MEDS: Metoclopramide 10 MG Tablet PO (20:01)
[2024-01-08 20:03] VITALS: BP 128/72; PULSE 62; RESP 18; TEMP 36.9; O2SAT 98
[2024-01-08] MEDS: traZODone 100 MG Tablet PO (23:17)
[2024-01-09 05:30] VITALS: BP 141/76; PULSE 67; RESP 18; TEMP 37.3; O2SAT 98
[2024-01-09] MEDS: Dicyclomine 10 MG Capsule 20 MG PO ×3 (06:24→20:17)
[2024-01-09] MEDS: Metoclopramide 5 MG TABLET PO ×2 (06:24→12:46)
[2024-01-09] MEDS: Buprenorphine HCl 2 MG TAB.SUBL SL ×3 (06:24→22:47)
[2024-01-09] MEDS: hydrOXYzine PAM 25 MG Capsule 50 MG PO ×2 (06:24→12:45)
[2024-01-09 09:30] VITALS: BP 134/83; PULSE 76; RESP 18; TEMP 36.8; O2SAT 99
[2024-01-09] MEDS: Thiamine Hydrochloride 100 MG Tablet PO (09:41)
[2024-01-09] MEDS: Folic Acid 1 MG Tablet PO (09:41)
[2024-01-09] MEDS: Ondansetron 8 MG Tablet PO ×2 (09:47→22:50)
[2024-01-09] MEDS: Gabapentin 300 MG Capsule PO ×2 (09:47→23:47)
--- NOTE | 2024-01-09 12:20 | CASEMGMT ---
Social Work SW completed SDOH w/pt, resources given. Pt is staying w/his sister and her boyfriend, has been there for 2.5 years. He states they have 6 cats and don't clean up after the cats, and there are also cockroaches. He can't do much about it as it is not his home, but is looking to move out. SW gave pt information for [facility] and housing resources. Pt explains he is detoxing, and is going to be getting a payment soon and is going to work on moving out. Pt also mentioned recently had his kids taken by the state which was two months ago--states are 17 and 16. SW offered support to pt, offered counseling resources, pt declined counseling resources. Pt does plan to follow up w/[facility] at discharge, is here for the [facility] program. SW remains available for support and any additional resources. KEM Becerra
[2024-01-09] MEDS: Acetaminophen 500 MG Tablet PO ×2 (12:46→22:54)
--- NOTE | 2024-01-09 14:15 | PN.HOSP_ITS ---
Reason for Visit Reason for Visit: Diagnoses Sedative, hypnotic or anxiolytic use, unspecified with withdrawal, unspecified (01/08/24) Objective Data Objective Data Vital Signs: Vital Signs Temp Pulse Resp BP Pulse Ox O2 Del Method 98.2 F 76 18 134/83 H 99 Room Air 01/09/24 09:30 01/09/24 09:30 01/09/24 09:30 01/09/24 09:30 01/09/24 09:30 01/09/24 09:30 Oxygen Delivery Method Room Air Weight: 106 lb 5.016 oz Body Mass Index (BMI) 17.6 Lab / Micro Data 01/08/24 11:30 01/08/24 11:30 Physical Exam Narrative Seen and examined. Patient having cramps but feeling better than yesterday. Tachycardia has resolved General: Alert, Oriented x3, Cooperative HEENT: Atraumatic, PERRLA, EOMI, Normocephalic Oral: No Gingival or Mucosal Lesions/ Ulcerations Neck: Supple, No JVD, Negative Carotid Bruits Chest wall/Lungs: Air entry diminished in bilateral lung bases. No crepitation/rhonchi Cardiovascular: Sinus rhythm, normal S1, Normal S2, No M/G/R Abdomen: Bowel Sounds Present, Soft, Non Tender, Non-Distended : No dysuria. No renal angle tenderness. No suprapubic tenderness. Extremities: No edema, Capillary Refill Less than 3 Seconds Skin: No rashes, No breakdown Musculoskeletal: No Tenderness to Palpation of Joints or Extremities Neurological: Cranial nerves II-XII grossly intact, DTR 2+/4. No acute focal neurological deficit. Psych/Mental Status: Flat affect. No hallucination or delusion or seizure Assessment & Plan Assessment/Plan (1) Benzodiazepine withdrawal: PLAN: Plan This 43-year-old gentleman is being admitted for acute benzodiazepine withdrawal syndrome 1. Acute opioid withdrawal syndrome with history of chronic benzodiazepine use disorder, dependence and tolerance: The patient is being admitted to [facility] floor. The patient is started on buprenorphine along with other adjunctive medications as needed for medical stabilization as per order set of opioid withdrawal syndrome.Patient also on trazodone, hydroxyzine, gabapentin as needed ordered. Advised quitting opioid use. community affairs manager consult. CINA monitoring. community affairs manager 180 consulted. 01/08: Patient doing slightly better than yesterday 2. Chronic cigarette smoking/nicotine use and marijuana use: Nicotine patches ordered. 3. DVT prophylaxis, low risk. Early ambulation encouraged. Advance directive/living will: Patient does not have a living will or advanced directive. His daughters are next to kin. Full code is verified Charges/Coding Visit Charges Inpatient E&M: 85261 Subs Hosp L2
[2024-01-09 15:25] VITALS: BP 139/84; PULSE 76; RESP 16; TEMP 37.1; O2SAT 98
--- NOTE | 2024-01-09 16:16 | ADDICTION ---
Pt was met with to complete [facility] assessment, AUDIT, DUDIT, ASAM, MT Stat, RPP, and D/C Plans. Pt presents as a 43 year old male admitted to [facility] for opioid detox. Pt was provided psychoeducation on the disease process of addiction and risk of relapse and Pt was offered resources, and the opportunity to schedule follow up inpatient or outpatient tx, but Pt declined a desire to engage in any [facility] or [facility] tx. Pt states that he needs to get back to work on Thursday or Thursday with [employer], as he is currently using vacation days to be in detox. Pt was warned of risk of relapse after release from detox and pt agreed to contact a PCP or MAT specialist to follow up with a minimum of MAT services. Pt states that he does not need transportation home once he is discharged.
[2024-01-09] MEDS: Ensure Plus High Protein 120 ML LIQUID PO (17:34)
[2024-01-09] MEDS: Ibuprofen 600 MG Tablet PO (17:36)
[2024-01-09 22:46] VITALS: BP 134/89; PULSE 63; RESP 16; TEMP 36.6; O2SAT 98
[2024-01-09] MEDS: traZODone 100 MG Tablet PO (22:50)
[2024-01-10 06:08] VITALS: BP 145/96; PULSE 90; RESP 16; TEMP 36.6; O2SAT 96
[2024-01-10] MEDS: Buprenorphine HCl 2 MG TAB.SUBL SL (06:09)
[2024-01-10 09:06] VITALS: BP 139/96; PULSE 92; RESP 18; TEMP 37.2; O2SAT 100
[2024-01-10] MEDS: Folic Acid 1 MG Tablet PO (09:10)
[2024-01-10] MEDS: Thiamine Hydrochloride 100 MG Tablet PO (09:10)
--- NOTE | 2024-01-10 11:25 | DCINST_ITS ---
Discharge Instructions Diet Discharge Diet: No restrictions Activity Discharge Activity: Return to Normal Activity Weight Bearing Status: Weight bearing as tolerated Dressing / Incision Call your doctor if you observe: Fever of 101 or Higher, Coldness, Increased Pain, Numbness or Tingling, Change in Color, Inability to urinate, Inability to have a bowel movement, Shortness of breath, Dizziness, Fainting spells, Swelling in the ankles, Chest pain, Prolonged hiccupping, Increased palpitations (irregular heartbeat) and Calf discomfort Follow Up Care When: IN 2 WEEKS Test Results: Test results from this visit will be discussed in further detail at your follow- up appointment, if applicable. Discharge Plan Admission Admit Date/Time: 01/08/24 12:35 Primary Reason for Your Visit: Acute opioid withdrawal syndrome Attending Provider: Santhosh Jackson Primary Care Provider: Care Physician,Diandra Primary Discharge Orders/Prescriptions Prescriptions: No Action NK Referrals / Follow Up: Care Physician,No Primary [Primary Care Provider] - Disposition Disposition (needs filled in before D/C Order can be placed): Home, Self Care
--- NOTE | 2024-01-10 12:26 | DS.PCM_ITS ---
Providers Date of Admission: 01/08/24 Date of Discharge: 01/10/24 Primary Care Physician: No Primary Care Phys Reason For Visit: FENTANYL DETOX OPOID USE WITHDRAWEL Diagnosis Discharge Diagnosis (1) Benzodiazepine withdrawal: Status: Acute Code(s): F13.939 - Sedative, hypnotic or anxiolytic use, unspecified with withdrawal, unspecified Plan This 43-year-old gentleman is being admitted for acute benzodiazepine withdrawal syndrome 1. Acute opioid withdrawal syndrome with history of chronic benzodiazepine use disorder, dependence and tolerance: [facility] The patient is started on buprenorphine along with other adjunctive medications as needed for medical stabilization as per order set of opioid withdrawal syndrome.Patient also on trazodone, hydroxyzine, gabapentin as needed ordered. Advised quitting opioid use. shopping centre manager consult. CINA monitoring. shopping centre manager 180 consulted. 01/08: Patient doing slightly better than yesterday 11/09: Overall patient did very good. CINA score 0. Patient wants to go home. He states he is determined and that he wants to go back to opioids use. 2. Chronic cigarette smoking/nicotine use and marijuana use: Nicotine patches ordered. 3. DVT prophylaxis, low risk. Early ambulation encouraged. Advance directive/living will: Patient does not have a living will or advanced directive. His daughters are next to kin. Full code is verified Discharge medication reconciliation done. Discharge follow-up instructions completed. Discharge process discussed with the patient and all questions were answered to patient's satisfaction. Follow with PCP in 1 to 2 weeks Total time spent, exact 35 minutes on discharge meds reconciliation, examination, coordination of care with nurses and ancillary staff, review of imaging and blood test and discussion with the patient on follow-up instructions. Medications at Discharge Home Medications NK 06/22/23 Physical Exam Narrative Seen and examined. Patient having cramps but feeling better than yesterday. Tachycardia has resolved General: Alert, Oriented x3, Cooperative HEENT: Atraumatic, PERRLA, EOMI, Normocephalic Oral: No Gingival or Mucosal Lesions/ Ulcerations Neck: Supple, No JVD, Negative Carotid Bruits Chest wall/Lungs: Air entry diminished in bilateral lung bases. No crepitation/rhonchi Cardiovascular: Sinus rhythm, normal S1, Normal S2, No M/G/R Abdomen: Bowel Sounds Present, Soft, Non Tender, Non-Distended : No dysuria. No renal angle tenderness. No suprapubic tenderness. Extremities: No edema, Capillary Refill Less than 3 Seconds Skin: No rashes, No breakdown Musculoskeletal: No Tenderness to Palpation of Joints or Extremities Neurological: Cranial nerves II-XII grossly intact, DTR 2+/4. No acute focal neurological deficit. Psych/Mental Status: Normal mood. Happy. Medical Records Data Medical Nutrition Assessment Dietitian: Malnutrition Criteria Met Start: 01/09/24 14:15 Freq: Status: Active Protocol: Document 01/09/24 14:15 SB (Rec: 01/09/24 14:16 SB [id number]) Nutrition Malnutrition Evidence of Malnutrition Exists Yes Malnutrition (severe): Chronic Evidenced By Suboptimal Energy Intake ( Severe),Weight Loss (Severe) Clinical Problem Chronic Disease or Condition Related Malnutrition Etiology severe related to inadequate oral intake and substance abuse Signs/Symptoms as evidenced by 13% unintentional weight loss x 6 months, PO meeting <75% of estimated nutrition needs x 6 months, and BMI 17.7kg/m2. Status Active Problem Recommendation Dietitian Recommendations/Changes Continue regular diet. Will order 120ml chocolate ensure plus high protein 4x daily with [employer]. Will monitor weight, as available. Reviewed and approved by Missy Villavicencio MS, RD, LD. Weight / BMI Weight Weight: 106 lb 5.016 oz Body Mass Index (BMI) 17.6 ABG / Lab / Microbiology Data 01/08/24 11:30 01/08/24 11:30 D/C Instructions Discharge Diet: No restrictions Weight Bearing Status: Weight bearing as tolerated Call your doctor if you observe: Fever of 101 or Higher, Coldness, Increased Pain, Numbness or Tingling, Change in Color, Inability to urinate, Inability to have a bowel movement, Shortness of breath, Dizziness, Fainting spells, Swelling in the ankles, Chest pain, Prolonged hiccupping, Increased palpitations (irregular heartbeat) and Calf discomfort When: IN 2 WEEKS Meaningful Use Info Meaningful Use Meaningful Use Diagnoses (Choose all that apply): None applicable Ischemic Stroke Statin Dosing Therapy Reference: STATIN DOSE THERAPY REFERENCE: * Patients > 75 years receive moderate or high dose statin therapy. * Patients 75 years or YOUNGER should receive HIGH intensity statin dose unless contraindicated. You will be required to document reason for non-treatment if statin daily dose does not meet guidelines. HIGH DOSE STATIN THERAPY DAILY Atorvastatin > than or = to 40 mg Rosuvastatin > than or = to 20 mg Amlodipine + Atorvastatin > than or = to 2.5/40 mg Ezetimibe + Simvastatin 10/80 mg Simvastatin 80mg Discharge Plan Admission Admit Date/Time: 01/08/24 12:35 Primary Reason for Your Visit: Acute opioid withdrawal syndrome Attending Provider: Santhosh Jackson Primary Care Provider: Care Physician,No Primary Discharge Orders/Prescriptions Prescriptions: No Action NK Referrals / Follow Up: Care Physician,No Primary [Primary Care Provider] - Disposition Disposition (needs filled in before D/C Order can be placed): Home, Self Care Charges/Coding Visit Charges Inpatient E&M: 69192 Disch Hosp >30min
== END 2024-01-10 13:45 | disposition home or self-care (01) | DRG 896 ==
LOC: ED 11:44 → MS3 14:15
PROVIDERS: Admitting Provider Internal Medicine; Emergency Provider Emergency Medicine; Visit Provider Internal Medicine
DX: F13.239 Sedative, hypnotic or anxiolytic dependence with withdrawal, unspecified (principal); E43 Unspecified severe protein-calorie malnutrition; Z68.1 Body mass index [BMI] 19.9 or less, adult; F12.90 Cannabis use, unspecified, uncomplicated; F17.210 Nicotine dependence, cigarettes, uncomplicated
CPT/HCPCS: 80048; 80076; 80307; 82077; 85025; 85610; 93005; 97802; 99283